=== PATIENT | female | born 1955 | race American Indian/Alaskan Native ===

== ENCOUNTER 2019-01-17 22:04 | Emergency (ER) | payer OTHER ==
[2019-01-18] MEDS ORDERED: PROVENTIL IH ONE (03:36)
[2019-01-18] MEDS ORDERED: SOLU-Medrol IV ONE (03:36)
[2019-01-18] MEDS ORDERED: TYLENOL PO ONE (03:37)
--- NOTE | 2019-01-18 04:04 | XRay Report ---
CHEST PA AND LATERAL VIEWS INDICATION: cough. COMPARISON: None. FINDINGS: Support devices: None. Heart: Within normal limits. Lungs/Pleura: There are somewhat diffuse, predominantly reticular bilateral pulmonary opacities. Ther e is mild consolidative change in the right lung base. No pleural effusion, no pneumothorax. IMPRESSION: 1. Diffuse reticular opacities can be seen in the setting of lower airways disease. There is mild air space disease in the right lung base concerning for pneumonia. Radiographic follow-up is recommended to confirm resolution. Signer Name: Tanmay Philip MD Signed: 01/18/2019 4:00 AM Workstation Name: [id number]
[2019-01-18 04:17] LABS: Basophils % (Auto) 0.6 % (0.0-1.8); Eosinophils # (Auto) 0.1 K/mm3 (0.0-0.4); Eosinophils % (Auto) 2.5 % (0.0-4.3); Hematocrit 39.9 % (30.3-42.9); Hemoglobin 13.4 gm/dl (10.1-14.3); Lymphocytes # (Auto) 1.2 K/mm3 (1.2-5.4); Lymphocytes % (Auto) 23.9 % (13.4-35.0); Mean Corpuscular HGB Conc 34 % (30-34); Mean Corpuscular Volume 90 fl (79-97); Monocytes # (Auto) 0.7 K/mm3 (0.0-0.8); Monocytes % (Auto) 13.8 % (0.0-7.3); Platelet Count 268 K/mm3 (140-440); Red Blood Count 4.43 M/mm3 (3.65-5.03); Red Cell Distribution Width 13.9 % (13.2-15.2)
[2019-01-18 04:39] LABS: Alanine Aminotransferase 41 units/L (7-56); Albumin 4.1 g/dL (3.9-5); BUN/Creatinine Ratio 6; Blood Urea Nitrogen 5 mg/dL (7-17); Hemolysis Index 4
[2019-01-18] MEDS ORDERED: ROCEPHIN IM ONE (05:21)
[2019-01-18] MEDS ORDERED: XYLOCAINE 1% MPF 5 mL INFILTRATI ONE (05:21)
[2019-01-18] MEDS ORDERED: ZITHROMAX PO ONE (05:21)
--- NOTE | 2019-01-18 05:29 | Emergency Department Report ---
- General Chief Complaint: Upper Respiratory Infection Stated Complaint: FLU SYMPTOMS Time Seen by Provider: 01/18/19 03:30 Source: patient Mode of arrival: Ambulatory Limitations: No Limitations - History of Present Illness Initial Comments: Patient is a 63-year-old -[place]ian female with a history of hypertension who presents to the ED, in no acute onset persistent nasal and sinus congestion, frontal sinus pressure and persistent cough with wheezing for the last 3 days. The patient is discharged to the symptoms are worsening in the last 2 hours. Patient denies fever, chills, nausea, vomiting, dizziness, headache, chest pain, shortness of breath, abdominal pain, neck pain, sore throat, change in mentation or palpitations. MD Complaint: cough, rhinorrhea, nasal congestion, sinus pain, other (diffuse body aches and pain) -: Sudden, days(s) (3) Severity: moderate Severity scale (0 -10): 6 Quality: aching Consistency: constant Improves With: nothing Worsens With: nothing Context: sick contacts Associated Symptoms: denies other symptoms, myalgias, headache, rhinorrhea, nasal congestion, cough. denies: fever, chills, diaphoresis, sore throat, stiff neck, chest pain, shortness of breath, abdominal pain, nausea, vomiting, diarrhea, rash, right sweats, weight loss, epistaxis, ear pain Treatments Prior to Arrival: none - Related Data Previous Rx's Medication Instructions Recorded Last Taken Type ALBUTEROL Inhaler (OR & NICU) 1 puff IH Q6H PRN #1 inha 01/18/19 Unknown Rx [ProAir HFA Inhaler] Amoxicillin/Potassium Clav 1 each PO Q12H #20 tablet 01/18/19 Unknown Rx [Augmentin 875-125 Tablet] Benzonatate [Tessalon Perles] 100 mg PO Q8HR #30 capsule 01/18/19 Unknown Rx Ibuprofen [Motrin] 600 mg PO Q8H PRN #20 tablet 01/18/19 Unknown Rx methylPREDNISolone [Medrol 4MG 4 mg PO DAILY #21 tab.ds.pk 01/18/19 Unknown Rx DOSEPAK (21 tabs)] Allergies Allergy/AdvReac Type Severity Reaction Status Date / Time No Known Allergies Allergy Unverified 01/17/19 23:26 ED Review of Systems ROS: Stated complaint: FLU SYMPTOMS Other details as noted in HPI Constitutional: denies: chills, fever Eyes: denies: eye pain, eye discharge, vision change ENT: congestion, other (frontal sinus congestion). denies: ear pain, throat pain Respiratory: cough. denies: shortness of breath, wheezing Cardiovascular: denies: chest pain, palpitations Endocrine: no symptoms reported. denies: flushing Gastrointestinal: denies: abdominal pain, nausea, diarrhea Genitourinary: denies: urgency, dysuria, discharge Musculoskeletal: denies: back pain, joint swelling, arthralgia Skin: denies: rash, lesions Neurological: denies: headache, weakness, paresthesias Psychiatric: denies: anxiety, depression Hematological/Lymphatic: denies: easy bleeding, easy bruising ED Past Medical Hx - Past Medical History Previous Medical History?: Yes Hx Hypertension: Yes - Surgical History Past Surgical History?: Yes Additional Surgical History: right ankle - Social History Smoking Status: Never Smoker Substance Use Type: None - Medications Home Medications: Home Medications Medication Instructions Recorded Confirmed Last Taken Type ALBUTEROL Inhaler (OR & NICU) 1 puff IH Q6H PRN #1 inha 01/18/19 Unknown Rx [ProAir HFA Inhaler] Amoxicillin/Potassium Clav 1 each PO Q12H #20 tablet 01/18/19 Unknown Rx [Augmentin 875-125 Tablet] Benzonatate [Tessalon Perles] 100 mg PO Q8HR #30 capsule 01/18/19 Unknown Rx Ibuprofen [Motrin] 600 mg PO Q8H PRN #20 tablet 01/18/19 Unknown Rx methylPREDNISolone [Medrol 4MG 4 mg PO DAILY #21 tab.ds.pk 01/18/19 Unknown Rx DOSEPAK (21 tabs)] ED Physical Exam - General Limitations: No Limitations General appearance: alert, in no apparent distress - Head Head exam: Present: atraumatic, normocephalic, normal inspection - Eye Eye exam: Present: normal appearance, PERRL, EOMI. Absent: scleral icterus, conjunctival injection, nystagmus Pupils: Present: normal accommodation - ENT ENT exam: Present: normal orophraynx, mucous membranes moist, TM's normal bilaterally, normal external ear exam, other (grossly congested nasal passages, palpable frontal sinus tenderness) - Neck Neck exam: Present: normal inspection, full ROM. Absent: tenderness, lymphadenopathy - Respiratory Respiratory exam: Present: normal lung sounds bilaterally, wheezes (moderately diffuse coarse wheezes throughout), rhonchi (audible rhonchi on right lower lobe). Absent: respiratory distress, chest wall tenderness, accessory muscle use, decreased breath sounds, prolonged expiratory - Cardiovascular Cardiovascular Exam: Present: regular rate, normal rhythm, normal heart sounds. Absent: systolic murmur, diastolic murmur, rubs, gallop - GI/Abdominal GI/Abdominal exam: Present: soft, normal bowel sounds. Absent: tenderness, hyperactive bowel sounds, organomegaly, bruit, pulsatile mass - Rectal Rectal exam: Present: deferred - Extremities Exam Extremities exam: Present: normal inspection, full ROM, normal capillary refill - Back Exam Back exam: Present: normal inspection, full ROM. Absent: tenderness, CVA tenderness (R), CVA tenderness (L), muscle spasm, paraspinal tenderness, vertebral tenderness - Neurological Exam Neurological exam: Present: alert, oriented X3, CN II-XII intact, normal gait, reflexes normal - Psychiatric Psychiatric exam: Present: normal affect, normal mood - Skin Skin exam: Present: warm, dry, intact, normal color. Absent: rash ED Course Vital Signs 01/17/19 23:22 Temperature 98.6 F Pulse Rate 85 Respiratory 16 Rate Blood Pressure 142/81 O2 Sat by Pulse 98 Oximetry - Reevaluation(s) Reevaluation #1: 01/18/19 05:26 Patient is alert and oriented 3 and is not in distress, with normal vital signs. Lab test results were reviewed and are all unremarkable. Patient was given normal nap treatment in the ED, also given Solu-Medrol and pain medicati on. Chest x-ray shows a somewhat diffuse predominantly reticular bilateral pulmonary opacities. There is mild consolidative changes in the right lung base concerning for pneumonia. No pleural effusion or pneumothorax. Lab test results were reviewed and are all unremarkable. Patient received Rocephin 1 g intramuscular injection and azithromycin 500 mg by mouth 1. On reevaluation, the patient stated that her symptoms are improved with treatment, and was discharged home on antibiotics and cough medications and advised to follow-up with her primary care physician in 5-7 days for reevaluation. Patient is advised to return to the ED immediately if symptoms get worse. ED Medical Decision Making - Lab Data Result diagrams: 01/18/19 03:57 01/18/19 03:57 - Radiology Data Radiology results: report reviewed, image reviewed Chest x-ray shows a somewhat diffuse predominantly reticular bilateral pulmonary opacities. There is mild consolidative changes in the right lung base concern ing for pneumonia. No pleural effusion or pneumothorax - Medical Decision Making Patient is alert and oriented 3 and is not in distress, with normal vital signs. Lab test results were reviewed and are all unremarkable. Patient was given normal nap treatment in the ED, also given Solu-Medrol and pain medication. Chest x-ray shows a somewhat diffuse predominantly reticular bilateral pulmonary opacities. There is mild consolidative changes in the right lung base concerning for pneumonia. No pleural effusion or pneumothorax. Lab test results were reviewed and are all unremarkable. Patient received Rocephin 1 g intramuscular injection and azithromycin 500 mg by mouth 1. On reevaluation, the patient stated that her symptoms are improved with treatment, and was discharged home on antibiotics and cough medications and advised to follow-up with her primary care physician in 5-7 days for reevaluation. Patient is advised to return to the ED immediately if symptoms get worse - Differential Diagnosis Acute URI; Pneumonia, bronchitis, sinusitis Critical care attestation.: If time is entered above; I have spent that time in minutes in the direct care of this critically ill patient, excluding procedure time. ED Disposition Clinical Impression: Acute upper respiratory infection Community acquired pneumonia Qualifiers: Laterality: right Lung location: lower lobe of lung Qualified Code(s): J18.1 - Lobar pneumonia, unspecified organism Disposition: DC-01 TO HOME OR SELFCARE Is pt being admited?: No Does the pt Need Aspirin: No Condition: Stable Instructions: Community-acquired Pneumonia (ED), Upper Respiratory Infection (ED) Additional Instructions: Take medications with food, drink plenty fluids and follow-up with your primary care physician in 5-7 days for reevaluation. Return to the ED immediately if symptoms get worse. Prescriptions: Amoxicillin/Potassium Clav [Augmentin 875-125 Tablet] 1 each PO Q12H #20 tablet methylPREDNISolone [Medrol 4MG DOSEPAK (21 tabs)] 4 mg PO DAILY #21 tab.ds.pk Ibuprofen [Motrin] 600 mg PO Q8H PRN #20 tablet PRN Reason: Pain ALBUTEROL Inhaler (OR & NICU) [ProAir HFA Inhaler] 1 puff IH Q6H PRN #1 inha PRN Reason: Dyspnea Benzonatate [Tessalon Perles] 100 mg PO Q8HR #30 capsule Referrals: [facility] [Outside] - 3-5 Days Time of Disposition: 05:31 Print Language: LUXEMBOURGISH
[2019-01-18 06:52] VITALS: BP 113/75
== END 2019-01-18 06:54 | disposition home or self-care (01) ==
LOC: ED 22:04
DX: J06.9 Acute upper respiratory infection, unspecified (principal); J18.9 Pneumonia, unspecified organism; I10 Essential (primary) hypertension; Z98.890 Other specified postprocedural states
CPT/HCPCS: 36415; 71046; 80053; 85025; 94640; 96372; 96374; 99284; J0696; J2930

== ENCOUNTER → 2019-02-02 | Emergency (ER) | payer SELFPAY ==
--- NOTE | 2019-02-02 20:25 | Emergency Department Report ---
Blank Doc - Documentation Documentation: This is a 63-year-old female that presents with requesting for a chest xray. Stated just finished antibiotics for PNA and PCP sent to get chest xray to make sure PNA is gone. Denies any symptoms or complaints. This initial assessment/diagnostic orders/clinical plan/treatment(s) is/are subject to change based on patient's health status, clinical progression and re- assessment by fellow clinical providers in the ED. Further treatment and workup at subsequent clinical providers discretion. Patient/guardians urged not to elope from the ED as their condition may be serious if not clinically assessed and managed. Initial orders include: 1- Patient sent to [facility] for further evaluation and treatment 2- CXR
--- NOTE | 2019-02-02 21:01 | XRay Report ---
CHEST 2 VIEWS INDICATION / CLINICAL INFORMATION: Productive cough. COMPARISON: 01/18/2019. FINDINGS: SUPPORT DEVICES: None. HEART / MEDIASTINUM: No significant abnormality. LUNGS / PLEURA: Patchy parenchymal disease in the right lower lung has cleared. No pneumothorax. ADDITIONAL FINDINGS: No significant additional findings. IMPRESSION: Interval resolution of right lower lobe pneumonia. No acute abnormality is identified. Signer Name: Wili Slater MD Signed: 02/02/2019 8:57 PM Workstation Name: [id number]
[2019-02-02 21:17] VITALS: BP 140/85
--- NOTE | 2019-02-02 21:27 | Emergency Department Report ---
ED General Adult HPI - General Chief complaint: Dyspnea/Respdistress Stated complaint: RECHECK FOR WALKING PNEUMONIA Time Seen by Provider: 02/02/19 20:24 Source: patient Mode of arrival: Ambulatory Limitations: No Limitations - History of Present Illness Initial comments: Patient is 63 years old female recently diagnosed with pneumonia, given Rocephin and 1 g in the emergency room and a prescription for Zithromax. Patient stated that she came today to make sure that her chest x-ray is clear as he was asked by the ER doctor to return back for that. Patient currently denying any fever or chills. Patient stated that she has occasional cough with some phlegm. Patient also denied any shortness of breath or chest pain. Severity scale (0 -10): 0 - Related Data Previous Rx's Medication Instructions Recorded Last Taken Type ALBUTEROL Inhaler (OR & NICU) 1 puff IH Q6H PRN #1 inha 01/18/19 Unknown Rx [ProAir HFA Inhaler] Amoxicillin/Potassium Clav 1 each PO Q12H #20 tablet 01/18/19 Unknown Rx [Augmentin 875-125 Tablet] Benzonatate [Tessalon Perles] 100 mg PO Q8HR #30 capsule 01/18/19 Unknown Rx Ibuprofen [Motrin] 600 mg PO Q8H PRN #20 tablet 01/18/19 Unknown Rx methylPREDNISolone [Medrol 4MG 4 mg PO DAILY #21 tab.ds.pk 01/18/19 Unknown Rx DOSEPAK (21 tabs)] Allergies Allergy/AdvReac Type Severity Reaction Status Date / Time No Known Allergies Allergy Unverified 01/17/19 23:26 ED Review of Systems ROS: Stated complaint: RECHECK FOR WALKING PNEUMONIA Other details as noted in HPI Comment: All other systems reviewed and negative Constitutional: denies: chills, fever Respiratory: cough. denies: orthopnea, shortness of breath, SOB with exertion, SOB at rest, wheezing Cardiovascular: denies: chest pain, palpitations Gastrointestinal: denies: abdominal pain, nausea, vomiting ED Past Medical Hx - Past Medical History Previous Medical History?: Yes Hx Hypertension: Yes Additional medical history: Pnuemonia - Surgical History Past Surgical History?: Yes Additional Surgical History: right ankle - Social History Smoking Status: Never Smoker - Medications Home Medications: Home Medications Medication Instructions Recorded Confirmed Last Taken Type ALBUTEROL Inhaler (OR & NICU) 1 puff IH Q6H PRN #1 inha 01/18/19 Unknown Rx [ProAir HFA Inhaler] Amoxicillin/Potassium Clav 1 each PO Q12H #20 tablet 01/18/19 Unknown Rx [Augmentin 875-125 Tablet] Benzonatate [Tessalon Perles] 100 mg PO Q8HR #30 capsule 01/18/19 Unknown Rx Ibuprofen [Motrin] 600 mg PO Q8H PRN #20 tablet 01/18/19 Unknown Rx methylPREDNISolone [Medrol 4MG 4 mg PO DAILY #21 tab.ds.pk 01/18/19 Unknown Rx DOSEPAK (21 tabs)] ED Physical Exam - General Limitations: No Limitations General appearance: alert, in no apparent distress - Head Head exam: Present: atraumatic, normocephalic, normal inspection - Eye Eye exam: Present: normal appearance - ENT ENT exam: Present: normal exam, normal orophraynx, mucous membranes moist - Neck Neck exam: Present: normal inspection, full ROM. Absent: tenderness, meningismus, lymphadenopathy, thyromegaly - Respiratory Respiratory exam: Present: normal lung sounds bilaterally. Absent: respiratory distress, wheezes, rales, rhonchi, accessory muscle use, decreased breath sounds, prolonged expiratory - Cardiovascular Cardiovascular Exam: Present: regular rate, normal heart sounds - GI/Abdominal GI/Abdominal exam: Present: soft, normal bowel sounds. Absent: distended, tenderness, guarding, rebound, rigid - Extremities Exam Extremities exam: Present: normal inspection, full ROM, normal capillary refill - Back Exam Back exam: Present: normal inspection, full ROM. Absent: CVA tenderness (R), CVA tenderness (L) - Neurological Exam Neurological exam: Present: alert, oriented X3, CN II-XII intact - Skin Skin exam: Present: warm, intact, normal color ED Course Vital Signs 02/02/19 02/02/19 02/02/19 19:51 21:16 21:22 Temperature 97.9 F 98.5 F Pulse Rate 86 74 Respiratory 18 12 18 Rate Blood Pressure 157/83 140/85 [Right] O2 Sat by Pulse 100 99 Oximetry ED Medical Decision Making - Radiology Data Radiology results: report reviewed Chest x-ray is unremarkable. - Medical Decision Making Patient is 63 years old female recently diagnosed with pneumonia, given Rocephin and 1 g in the emergency room and a prescription for Zithromax. Patient stated that she came today to make sure that her chest x-ray is clear as he was asked by the ER doctor to return back for that. Patient currently denying any fever or chills. Patient stated that she has occasional cough with some phlegm. Patient also denied any shortness of breath or chest pain. Patient stated that she feels much better. Chest x-ray repeated today and is unremarkable. Patient advised to follow-up with her primary care physician as needed and to return to the ER if she developed new symptoms. Critical care attestation.: If time is entered above; I have spent that time in minutes in the direct care of this critically ill patient, excluding procedure time. ED Disposition Clinical Impression: Pneumonia Disposition: DC- TO HOME OR SELFCARE Is pt being admited?: No Condition: Stable Instructions: Bacterial Pneumonia (ED) Referrals: CHRIS NICOLE MD [Staff Physician] - 3-5 Days
[2019-02-02 21:42] LABS: Hematocrit 37.1 % (30.3-42.9); Hemoglobin 12.7 gm/dl (10.1-14.3); Mean Corpuscular HGB Conc 34 % (30-34); Mean Corpuscular Hemoglobin 31 pg (28-32); Mean Corpuscular Volume 90 fl (79-97); Platelet Count 301 K/mm3 (140-440); Red Blood Count 4.13 M/mm3 (3.65-5.03); Red Cell Distribution Width 13.6 % (13.2-15.2)
[2019-02-02 22:07] LABS: BUN/Creatinine Ratio 11; Blood Urea Nitrogen 10 mg/dL (7-17); Calcium 8.9 mg/dL (8.4-10.2); Hemolysis Index 46
== END | disposition home or self-care (01) ==
LOC: ED 19:47
DX: J18.9 Pneumonia, unspecified organism (principal); I10 Essential (primary) hypertension; Z79.899 Other long term (current) drug therapy
CPT/HCPCS: 36415; 71046; 80048; 85027